=== PATIENT | male | born 1990 | race African-American/Black ===

== ENCOUNTER 2022-06-18 02:39 | Emergency (ER) | payer OTHER ==
[~2022-06-18] VITALS: Ht 170.2 cm; Wt 94.0 kg
[2022-06-18 03:34] LABS: BASOPHILS % (AUTO) 0 % (0-10); EOSINOPHILS # (AUTO) 0.2 10^3/uL (0.0-0.3); EOSINOPHILS % (AUTO) 2 % (0-10); HEMATOCRIT 43 % (40-54); HEMOGLOBIN 14.7 g/dL (13.3-17.7); LYMPHOCYTES # (AUTO) 3.1 10^3/uL (1.0-4.0); LYMPHOCYTES % (AUTO) 28 % (12-44); MEAN CORPUSCULAR HEMOGLOBIN 27 pg (25-34); MEAN CORPUSCULAR HGB CONC 34 g/dL (32-36); MEAN CORPUSCULAR VOLUME 79 fL (80-99); MEAN PLATELET VOLUME 9.8 fL (9.0-12.2); MONOCYTES # (AUTO) 1.1 10^3/uL (0.0-1.0); MONOCYTES % (AUTO) 10 % (0-12); NEUTROPHILS # (AUTO) 6.6 10^3/uL (1.8-7.8); NEUTROPHILS % (AUTO) 60 % (42-75); PLATELET COUNT 262 10^3/uL (130-400); WHITE BLOOD COUNT 11.1 10^3/uL (4.3-11.0)
[2022-06-18 03:50] LABS: FIBRIN DEGRADATION PRODUCTS 0.28 UG/ML (0.00-0.49); INR 1.2 (0.8-1.4); PROTHROMBIN TIME PATIENT 15.3 SEC (12.2-14.7)
[2022-06-18 04:01] LABS: ALANINE AMINOTRANSFERASE 34 U/L (0-55); ALBUMIN 3.9 GM/DL (3.2-4.5); ALKALINE PHOSPHATASE 27 U/L (40-136); BILIRUBIN,TOTAL 0.3 MG/DL (0.1-1.0); BUN/CREATININE RATIO 11; CALCIUM 9.1 MG/DL (8.5-10.1); CARBON DIOXIDE 22 MMOL/L (21-32); CHLORIDE 107 MMOL/L (98-107); CREATINE KINASE 859 U/L (30-200); GFR ESTIMATED 75; GLUCOSE 89 MG/DL (70-105); LIPASE 67 U/L (8-78); MAGNESIUM 1.9 MG/DL (1.6-2.4); POTASSIUM 3.8 MMOL/L (3.6-5.0); SODIUM 138 MMOL/L (135-145)
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
[2022-06-18 04:15] LABS: ERYTHROCYTE SEDIMENTATION RATE 2 MM/HR (0-15)
[2022-06-18 04:25] LABS: CREATINE KINASE MB 2.5 NG/ML (<6.6); TSH (THYROID ANALYZER) 3.22 UIU/ML (0.35-4.94)
[2022-06-18] MEDS ORDERED: HOLD METFORMIN - RECEIVED CONTRAST 20 ML VIAL IV SCH (05:30)
[2022-06-18] MEDS ORDERED: IOHEXOL 350 MG/ML 100 ML (OMNIPAQUE 350) VIAL IV ONE (05:30)
[2022-06-18] MEDS ORDERED: NS 100 ML (IVPB) BAG IV ONE (05:30)
[2022-06-18 07:16] LABS: BILIRUBIN,URINE NEGATIVE (NEGATIVE); CLARITY,URINE CLEAR; COLOR,URINE YELLOW; GLUCOSE, URINE (UA) NEGATIVE (NEGATIVE); KETONES,URINE NEGATIVE (NEGATIVE); LEUKOCYTE ESTERASE ,URINE NEGATIVE (NEGATIVE); NITRITE,URINE NEGATIVE (NEGATIVE); PH,URINE 5.5 (5-9); PROTEIN,URINE NEGATIVE (NEGATIVE)
[2022-06-18 07:27] LABS: BACTERIA,URINE NEGATIVE /HPF; RBC,URINE RARE /HPF
[2022-06-18] MEDS ORDERED: SUCR1TAB36 PO (07:33)
[2022-06-18] MEDS ORDERED: PANT40TA2 PO (07:33)
[2022-06-18 07:45] VITALS: BP 149/92
--- NOTE | 2022-06-18 07:58 | Diagnostic Imaging Report ---
INDICATION: CP, CTA chest, abdomen and pelvis Thin axial sections through the chest, abdomen and pelvis are obtained following intravenous contrast bolus. Multiplanar MIP images were reconstructed and reviewed. All CT scans use one or more of the following dose optimizing techniques: automated exposure control, MA and/or KvP adjustment based on patient size and exam type or iterative reconstruction. CHEST: There are no pulmonary arterial filling defects. There is no PE identified. Thoracic aorta patent and nonaneurysmal and nonacute. There is no pleural or pericardial effusion. No pulmonary consolidation. No lung mass, edema or adenopathy. Abdomen pelvis: Liver, spleen, adrenals and pancreas unremarkable. There is renal cysts on the left. No hydroureteronephrosis. No small or large bowel obstruction. There is no appendicitis or diverticulitis. Urinary bladder unremarkable. No ascites, abscess, hematoma or acute fluid collection. The abdominal aorta is nonaneurysmal. No focal inflammatory changes. Impression: There is no acute appearing abnormality identified at CT angiogram chest and postcontrast enhanced abdominal pelvic CT. There Are conflicting notes from the technologist stating that there is in fact an [facility] report for this exam. I have been able to reach the technologist therefore I have no way of knowing if this is in agreement with that report or if that was even done. Dictated by: Dictated on workstation # [id number]
--- NOTE | 2022-06-18 08:25 | Diagnostic Imaging Report ---
INDICATION: Chest pain FINDINGS: The lungs are clear. No failure, effusion, or pneumothorax. IMPRESSION: No acute appearing abnormality. Dictated by: Dictated on workstation # [id number]
== END 2022-06-18 07:44 | disposition home or self-care (01) ==
LOC: ER 02:43
DX: K44.9 Diaphragmatic hernia without obstruction or gangrene (principal)
CPT/HCPCS: 36415; 71045; 71275; 74177; 80053; 81000; 82550; 82553; 83690; 83735; 83874; 83880; 84443; 84484; 85025; 85379; 85610; 85652; 85730; 86141; 93005; 93041

== ENCOUNTER 2023-01-21 16:07 | Emergency (ER) | payer OTHER ==
[~2023-01-21] VITALS: Ht 170 cm; Wt 103.0 kg
[~2023-01-21 16:07] MED LIST: PANT40TA2 PO; SUCR1TAB36 PO
[2023-01-21 16:13] VITALS: BP 191/124
--- NOTE | 2023-01-21 16:52 | ED Upper Extremity ---
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 Patient reports that he was lifting approximately 405 pounds on the bench press attempting reduced 10 reps. He said it was going well until the seventh breath when also he just had significant pain in that area. He reports now it hurts just excelsior picker his phone. He does have full range of motion but he has some painful Allergies and Home Medications Allergies Coded Allergies: No Known Drug Allergies (Unverified , 06/18/22) Patient Home Medication List Home Medication List Reviewed: Yes Pantoprazole Sodium (Protonix) 40 Mg Tablet.dr, 40 MG PO DAILY Prescribed by: ARA TAM on 06/18/22 0733 Sucralfate (Carafate) 1 Gram Tablet, 1 GM PO QID Prescribed by: ARA TAM on 06/18/22 0733 Review of Systems Constitutional: no symptoms reported EENTM: no symptoms reported Respiratory: no symptoms reported Cardiovascular: no symptoms reported Gastrointestinal: no symptoms reported Genitourinary: no symptoms reported Musculoskeletal: see HPI Skin: no symptoms reported Psychiatric/Neurological: No Symptoms Reported Past Ggakoqn-Bdjgqv-Yvsvre Hx Patient Social History Tobacco Use?: No Substance use?: No Alcohol Use?: No Immunizations Up To Date First/Initial COVID19 Vaccinat: [address]: 2020 Third COVID19 Vaccination Date: NONE Past Medical History Surgery/Hospitalization HX: BI LAT SHOULDER SX, PLATE IN LT HAND Surgeries: Yes (SKIN GRAFTS DUE TO [place]; BILATERAL SHOULDER SURGERIES) Orthopedic Respiratory: No Cardiac: No Neurological: No Genitourinary: No Gastrointestinal: No Musculoskeletal: Yes (BILATERAL SHOULDER SURGERIES) Endocrine: No HEENT: No Cancer: No Psychosocial: No Integumentary: Yes (KING WITH SKIN GRAFTS) Blood Disorders: No Physical Exam Vital Signs Vital Signs - First Documented 01/21/23 16:13 Temp 36.8 Pulse 106 Resp 20 B/P (MAP) 191/124 (146) Pulse Ox 96 O2 Delivery Room Air Capillary Refill : Less Than 3 Seconds Height, Weight, BMI Height: '" Weight: lbs. oz. kg; 35.00 BMI Method: General Appearance: WD/WN, no apparent distress Shoulder: soft tissue tenderness Elbow/Forearm: normal inspection Wrist: Yes normal inspection Hand: normal inspection Neurologic/Tendon: other (Patient with no obvious tendon injury. He does have positive exam for likely rotator cuff strain versus pectoralis minor strain.) Neurologic/Psychiatric: alert, normal mood/affect, oriented x 3 Skin: normal color, warm/dry Progress/Results/Core Measures Results/Orders Vital Signs/I&O 01/21/23 16:13 Temp 36.8 Pulse 106 Resp 20 B/P (MAP) 191/124 (146) Pulse Ox 96 O2 Delivery Room Air Blood Pressure Mean: 146 Progress Progress Note : Progress Note This time no imaging is indicated. I did discuss patient supportive care for strain and proper recovery. He can follow-up with a rail specialist and primary care provider if he feels is not improving and would like further evaluation. Departure Impression Primary Impression: Pectoralis muscle strain Qualified Codes: S29.011A - Strain of muscle and tendon of front wall of thorax, initial encounter Additional Impression: Strain of rotator cuff of right shoulder Disposition: HOME, SELF-CARE Condition: Stable Departure-Patient Inst. Referrals: NO,LOCAL PHYSICIAN (PCP/Family) Primary Care Physician Patient Instructions: Muscle Strain ED Add. Discharge Instructions: You may follow-up with rail specialist. There is an rail specialist located at [facility] , [address] [place] [address], [place] This is open until 8pm daily. Voltaren/diclofenac cream or gel use as directed on package All discharge instructions reviewed with patient and/or family. Voiced understanding. PRAKASH RODRÍGUEZ DO Jan 21, 2023 16:52
== END 2023-01-21 16:55 | disposition home or self-care (01) ==
LOC: EDUNIT# 16:07 → ER 16:09
DX: S46.011A Strain of muscle(s) and tendon(s) of the rotator cuff of right shoulder, initial encounter (principal); S29.011A Strain of muscle and tendon of front wall of thorax, initial encounter; X50.0XXA Overexertion from strenuous movement or load, initial encounter; Y93.F2 Activity, caregiving, lifting
CPT/HCPCS: 99281